=== PATIENT | female | born 1950 | race Two or more races ===

== ENCOUNTER 2016-10-30 04:19 | Emergency (ER) | payer MEDICARE, MEDICAID ==
[~2016-10-30] VITALS: Ht 165.1 cm; Wt 61.2 kg
[~2016-10-30 04:19] MED LIST: ACET-868 PO; AMIN30LI31 PO; BISA10SU8 RC; CALC500T63 PO; DOCU-25 PO; HYDR-3024 PO; HYDR-3326 PO; LACT1CAP57 PO; MAGN400O6 PO; ONDA4TAB5 PO; PANT40SU PO; [UNRECOGNIZED DRUG - CODE] PO
[2016-10-30 05:46] LABS: CALCIUM, SERUM 8.6 mg/dL (8.5-10.1); CREATININE 0.6 mg/dL (0.6-1.3); POTASSIUM 3.9 mmol/L (3.5-5.1)
[2016-10-30 05:52] LABS: ALBUMIN 3.3 g/dL (3.4-5.0); BILIRUBIN,DIRECT 0.1 mg/dL (0.0-0.2); BILIRUBIN,TOTAL 0.3 mg/dL (0.2-1.0); INDIRECT BILIRUBIN 0.2 mg/dL (0.0-1.1); SALICYLATE 0.7 mg/dL (2.8-20.0); TOTAL PROTEIN, SERUM 9.1 g/dL (6.4-8.2)
[2016-10-30 06:20] LABS: BASOPHILS % (AUTO) 0.3 % (0.0-2.0); EOSINOPHILS # (AUTO) 0.2 /CMM (0.0-0.7); HEMATOCRIT 35 % (33-45); HEMOGLOBIN 11.2 g/dL (11.5-14.8); LYMPHOCYTES # (AUTO) 1.4 /CMM (0.8-4.8); LYMPHOCYTES % (AUTO) 22.4 % (20.0-44.0); MEAN CORPUSCULAR HEMOGLOBIN 25 PG (26.0-33.0); MEAN CORPUSCULAR HGB CONC 32 g/dl (31.0-36.0); MEAN CORPUSCULAR VOLUME 77 fL (82-100); MONOCYTES # (AUTO) 0.5 /CMM (0.1-1.30); NEUTROPHILS # (AUTO) 4.2 /CMM (1.8-8.9); NEUTROPHILS % (AUTO) 66.3 % (43.0-81.0); PLATELET COUNT (AUTO) 174 /CMM (150-450); RED BLOOD CELL COUNT(AUTO) 4.47 MIL/uL (4.0-5.2); WHITE BLOOD COUNT (AUTO) 6.4 K/uL (4.3-11.0)
[2016-10-30 08:00] VITALS: BP 132/80
== END 2016-10-30 08:24 | disposition home or self-care (01) ==
LOC: ER 04:24
DX: F10.129 Alcohol abuse with intoxication, unspecified (principal); Z59.0 Homelessness; Z88.0 Allergy status to penicillin
CPT/HCPCS: 36415; 80048; 80076; 85025; 99284; A4606; G0480; G0481; G0482; G6038-TC; G6039-TC; G6040-TC; Z7610

== ENCOUNTER 2016-11-07 07:21 | Inpatient (IN) | payer MEDICAID, MEDICARE ==
[~2016-11-07] VITALS: Ht 154.9 cm; Wt 66.7 kg
[~2016-11-07 07:21] MED LIST changes: +SENN-18 PO; -[UNRECOGNIZED DRUG - CODE] PO
[2016-11-07] MEDS ORDERED: IV SET PRIMARY 1 EA INFUS.SET MC ONE (07:27)
[2016-11-07] MEDS ORDERED: IV NS 0.9% 1,000 ML ONE (07:27)
[2016-11-07 07:55] LABS: BASOPHILS % (AUTO) 0.3 % (0.0-2.0); DIFF TOTAL % 100 %; EOSINOPHILS % (AUTO) 0.4 % (0.0-6.0); HEMATOCRIT 28 % (33-45); HEMOGLOBIN 9.1 g/dL (11.5-14.8); LYMPHOCYTES # (AUTO) 0.7 /CMM (0.8-4.8); LYMPHOCYTES % (AUTO) 14.2 % (20.0-44.0); MEAN CORPUSCULAR HEMOGLOBIN 25 PG (26.0-33.0); MEAN CORPUSCULAR HGB CONC 33 g/dl (31.0-36.0); MEAN CORPUSCULAR VOLUME 76 fL (82-100); MONOCYTES # (AUTO) 0.3 /CMM (0.1-1.30); MONOCYTES % (AUTO) 5.8 % (2.0-12.0); NEUTROPHILS # (AUTO) 3.9 /CMM (1.8-8.9); NEUTROPHILS % (AUTO) 79.3 % (43.0-81.0); PLATELET COUNT (AUTO) 148 /CMM (150-450); RED BLOOD CELL COUNT(AUTO) 3.65 MIL/uL (4.0-5.2); WHITE BLOOD COUNT (AUTO) 4.9 K/uL (4.3-11.0)
[2016-11-07 08:06] LABS: ANION GAP 22 (5-14); CALCIUM, SERUM 7.8 mg/dL (8.5-10.1); CARBON DIOXIDE 19 mmol/L (21-32); CHLORIDE 98 mmol/L (98-107); CREATININE 0.9 mg/dL (0.6-1.3); GFR 63 mL/min (>60); GLUCOSE 168 mg/dL (74-106); SODIUM SERUM 136 mmol/L (136-145); UREA NITROGEN, BLOOD 5 mg/dL (7-18)
[2016-11-07 08:11] LABS: ALANINE AMINOTRANSFERASE 126 U/L (12-78); ASPARTATE AMINOTRANSFERASE 114 U/L (15-37); BILIRUBIN,DIRECT 0.2 mg/dL (0.0-0.2); BILIRUBIN,TOTAL 0.7 mg/dL (0.2-1.0); INDIRECT BILIRUBIN 0.5 mg/dL (0.0-1.1); TOTAL PROTEIN, SERUM 8.2 g/dL (6.4-8.2)
[2016-11-07] MEDS ORDERED: ONDANSETRON HCL/PF 4 MG/2 ML VIAL ONE (09:07)
[2016-11-07] MEDS ORDERED: ACETAMINOPHEN ES 500 MG TABLET ONE (09:26)
[2016-11-07] MEDS ORDERED: ACETAMINOPHEN ES 500 MG TABLET PO ONE (09:30)
[2016-11-07] MEDS ORDERED: ONDANSETRON HCL/PF 4 MG/2 ML VIAL IV ONE (09:30)
[2016-11-07] MEDS ORDERED: IV NS 0.9% 1,000 ML IV PRN (10:38)
[2016-11-07] MEDS ORDERED: Z GUARD REMEDY 2 OZ OINT TP PRN (11:00)
[2016-11-07] MEDS ORDERED: hydrOXYzine 10 MG TABLET PO PRN (11:00)
[2016-11-07] MEDS ORDERED: ACETAMINOPHEN 325 MG TABLET PO PRN ×2 (11:00)
[2016-11-07] MEDS ORDERED: BISACODYL SUPP (10 MG) 10 MG/SUPP.RECT SUPP.RECT RC PRN (11:00)
[2016-11-07] MEDS ORDERED: MAGNESIUM HYDROXIDE 30 ML UDC PO PRN (11:00)
[2016-11-07] MEDS ORDERED: MAG HYDROX/AL HYDROX/SIMETH 30 ML UDC PO PRN (11:00)
[2016-11-07] MEDS ORDERED: CALCIUM CARBONATE 500 MG TAB.CHEW PO PRN (11:00)
[2016-11-07] MEDS ORDERED: ZOLPIDEM TARTRATE 5 MG TABLET PO PRN (11:00)
[2016-11-07] MEDS ORDERED: ONDANSETRON HCL/PF 4 MG/2 ML VIAL IVP PRN (11:00)
[2016-11-07] MEDS ORDERED: LORAZEPAM INJ 2 MG/ML VIAL IV PRN (11:00)
[2016-11-07 11:59] VITALS: BP 134/72
[2016-11-07 12:00] VITALS: BP 152/66
[2016-11-07] MEDS ORDERED: POTASSIUM CHLORIDE 20 MEQ TAB.PRT.SR PO ONE (12:00)
[2016-11-07] MEDS ORDERED: SECONDARY IV SET 1 EA INFUS.SET MC ONE (12:28)
[2016-11-07] MEDS ORDERED: IV SET PRIMARY PUMP SET 1 EA INFUS.SET MC ONE (12:28)
[2016-11-07] MEDS: Thiamine 100 MG in IV D5W 50 ML IV SCH (12:44)
[2016-11-07] MEDS: HYDROCODONE/APAP 5/325MG 1 EACH TABLET PO PRN ×2 (12:44→21:01)
[2016-11-07 16:00] VITALS: BP 112/58
[2016-11-07] MEDS: LACTOBACILLUS RHAMNOSUS GG 1 EACH CAP.SPRINK PO SCH (17:44)
[2016-11-07 20:00] VITALS: BP 128/56
[2016-11-07] MEDS ORDERED: SENNOSIDES 8.6 MG TABLET PO SCH (22:00)
[2016-11-08] VITALS (7 sets, daily range): BP systolic 122–161; BP diastolic 66–92
[2016-11-08] MEDS: HYDROCODONE/APAP 5/325MG 1 EACH TABLET PO PRN ×2 (01:13→05:17)
[2016-11-08 06:45] LABS: BASOPHILS % (AUTO) 0.3 % (0.0-2.0); DIFF TOTAL % 100 %; EOSINOPHILS # (AUTO) 0.1 /CMM (0.0-0.7); EOSINOPHILS % (AUTO) 3.3 % (0.0-6.0); HEMATOCRIT 28 % (33-45); HEMOGLOBIN 9.3 g/dL (11.5-14.8); LYMPHOCYTES # (AUTO) 0.9 /CMM (0.8-4.8); LYMPHOCYTES % (AUTO) 25.1 % (20.0-44.0); MEAN CORPUSCULAR HEMOGLOBIN 25 PG (26.0-33.0); MEAN CORPUSCULAR HGB CONC 33 g/dl (31.0-36.0); MEAN CORPUSCULAR VOLUME 76 fL (82-100); MONOCYTES # (AUTO) 0.3 /CMM (0.1-1.30); MONOCYTES % (AUTO) 7.8 % (2.0-12.0); NEUTROPHILS # (AUTO) 2.2 /CMM (1.8-8.9); NEUTROPHILS % (AUTO) 63.5 % (43.0-81.0); PLATELET COUNT (AUTO) 111 /CMM (150-450); RED BLOOD CELL COUNT(AUTO) 3.72 MIL/uL (4.0-5.2); WHITE BLOOD COUNT (AUTO) 3.5 K/uL (4.3-11.0)
[2016-11-08 06:55] LABS: CALCIUM, SERUM 7.9 mg/dL (8.5-10.1); CREATININE 0.5 mg/dL (0.6-1.3); PHOSPHORUS 3.5 mg/dL (2.5-4.9); POTASSIUM 3.4 mmol/L (3.5-5.1)
[2016-11-08] MEDS ORDERED: PANTOPRAZOLE 40 MG TABLET.DR PO SCH (07:30)
[2016-11-08] MEDS: LACTOBACILLUS RHAMNOSUS GG 1 EACH CAP.SPRINK PO SCH ×2 (08:46→17:45)
[2016-11-08] MEDS ORDERED: FOLIC ACID 1 MG TABLET PO SCH (09:00)
[2016-11-08] MEDS ORDERED: MAGNESIUM HYDROXIDE 30 ML UDC PO SCH (09:00)
[2016-11-08] MEDS ORDERED: DOCUSATE SODIUM 100 MG CAPSULE PO SCH (09:00)
[2016-11-08] MEDS ORDERED: MULTIVIT, IRON, MIN NO. 8, FA 1 TAB TABLET PO SCH (09:00)
[2016-11-08] MEDS ORDERED: POTASSIUM CHLORIDE 20 MEQ TAB.PRT.SR PO ONE (10:30)
[2016-11-08] MEDS ORDERED: SECONDARY IV SET 1 EA INFUS.SET MC ONE (10:37)
[2016-11-08] MEDS: Magnesium 1GM/D5W 100ML PREMIX 100 ML IV SCH ×3 (10:40→13:25)
[2016-11-08] MEDS ORDERED: NEOMY SULF/BACITRAC ZN/POLY 15 GM TUBE TP SCH (11:30)
[2016-11-08] MEDS: Thiamine 100 MG in IV D5W 50 ML IV SCH (14:19)
== END 2016-11-08 18:41 | disposition left against medical advice (07) | DRG 101 ==
LOC: ER 07:23 → TELE1 10:53
PROVIDERS: ADMIT Internal Medicine; ATTEND Internal Medicine
DX: G40.89 Other seizures (principal); E46 Unspecified protein-calorie malnutrition; S00.03XA Contusion of scalp, initial encounter; D64.9 Anemia, unspecified; E78.5 Hyperlipidemia, unspecified; E87.6 Hypokalemia; F17.210 Nicotine dependence, cigarettes, uncomplicated; K21.9 Gastro-esophageal reflux disease without esophagitis; F10.20 Alcohol dependence, uncomplicated; R74.0 Nonspecific elevation of levels of transaminase and lactic acid dehydrogenase [LDH]; F99 Mental disorder, not otherwise specified; Z59.0 Homelessness; Z88.0 Allergy status to penicillin; Z68.27 Body mass index [BMI] 27.0-27.9, adult; X58.XXXA Exposure to other specified factors, initial encounter; Y93.9 Activity, unspecified; Y92.9 Unspecified place or not applicable; Y99.9 Unspecified external cause status
CPT/HCPCS: 36415; 70450-TC; 70486-TC; 72125-TC; 80048-TC; 80076-TC; 83735-TC; 84100-TC; 85025-TC; 87081-TC; A4606; G0480; J2405; J3411; J3475; J7030; J7060; L0172; Q0177; Z7610

== ENCOUNTER 2016-11-09 14:08 | Emergency (ER) | payer MEDICARE, MEDICAID ==
[~2016-11-09] VITALS: Ht 154.9 cm; Wt 65.8 kg
[~2016-11-09 14:08] MED LIST changes: -SENN-18 PO; +[UNRECOGNIZED DRUG - CODE] PO
[2016-11-09] MEDS ORDERED: IV LR 1000 ML 1,000 ML ONE (14:22)
[2016-11-09] MEDS ORDERED: HALOPERIDOL LACTATE INJ 5 MG/ML VIAL ONE ×2 (14:22→16:22)
[2016-11-09] MEDS ORDERED: IV SET PRIMARY PUMP SET 1 EA INFUS.SET MC ONE (14:22)
[2016-11-09] MEDS ORDERED: HALOPERIDOL LACTATE INJ 5 MG/ML VIAL IVP ONE (14:30)
[2016-11-09] MEDS ORDERED: IV LR 1000 ML 1,000 ML IV ONE (15:00)
[2016-11-09] MEDS ORDERED: HALOPERIDOL LACTATE INJ 5 MG/ML VIAL IV ONE (17:30)
[2016-11-09 18:57] VITALS: BP 120/64
== END 2016-11-09 18:58 | disposition home or self-care (01) ==
LOC: ER 14:10
DX: F10.129 Alcohol abuse with intoxication, unspecified (principal); E89.0 Postprocedural hypothyroidism; Z88.0 Allergy status to penicillin; Z59.0 Homelessness; R73.09 Other abnormal glucose
CPT/HCPCS: 70450-TC; 82962-TC; A4606; J1630; J7120; Z7610

== ENCOUNTER 2016-11-20 15:33 | Emergency (ER) | payer MEDICARE, MEDICAID ==
[~2016-11-20] VITALS: Ht 162.6 cm; Wt 54.4 kg
[~2016-11-20 15:33] MED LIST changes: +SENN-18 PO; -[UNRECOGNIZED DRUG - CODE] PO
[2016-11-20] MEDS ORDERED: ACETAMINOPHEN ES 500 MG TABLET ONE (15:45)
[2016-11-20 15:54] VITALS: BP 120/65
[2016-11-20] MEDS ORDERED: ACETAMINOPHEN ES 500 MG TABLET PO ONE (16:00)
== END 2016-11-20 16:14 | disposition left against medical advice (07) ==
LOC: ER 15:36
DX: M54.5 Low back pain (principal); F10.129 Alcohol abuse with intoxication, unspecified; W18.30XA Fall on same level, unspecified, initial encounter; Y93.89 Activity, other specified; Y92.89 Other specified places as the place of occurrence of the external cause; Y99.8 Other external cause status; Z59.0 Homelessness; Z88.0 Allergy status to penicillin; E89.0 Postprocedural hypothyroidism
CPT/HCPCS: A4606; Z7610

== ENCOUNTER 2016-11-24 20:09 | Emergency (ER) | payer MEDICARE, MEDICAID ==
[~2016-11-24] VITALS: Ht 162.6 cm; Wt 54.4 kg
[2016-11-24] MEDS ORDERED: IV NS 0.9% 1,000 ML ONE (21:00)
[2016-11-24] MEDS ORDERED: THIAMINE HCL 100 MG TABLET PO ONE (21:00)
[2016-11-24] MEDS ORDERED: IV SET PRIMARY 1 EA INFUS.SET MC ONE (21:00)
[2016-11-24] MEDS ORDERED: FOLIC ACID 1 MG TABLET PO ONE (21:00)
[2016-11-24] MEDS ORDERED: IV NS 0.9% 1,000 ML BAG IV ONE (21:00)
[2016-11-24] MEDS ORDERED: FOLIC ACID 1 MG TABLET ONE (21:00)
[2016-11-24] MEDS ORDERED: THIAMINE HCL 100 MG TABLET ONE (21:00)
[2016-11-24 21:15] LABS: BASOPHILS % (AUTO) 0.5 % (0.0-2.0); DIFF TOTAL % 100 %; EOSINOPHILS # (AUTO) 0.3 /CMM (0.0-0.7); HEMATOCRIT 33 % (33-45); HEMOGLOBIN 10.6 g/dL (11.5-14.8); LYMPHOCYTES # (AUTO) 2.2 /CMM (0.8-4.8); LYMPHOCYTES % (AUTO) 39.4 % (20.0-44.0); MEAN CORPUSCULAR HEMOGLOBIN 24 PG (26.0-33.0); MEAN CORPUSCULAR HGB CONC 32 g/dl (31.0-36.0); MEAN CORPUSCULAR VOLUME 76 fL (82-100); MONOCYTES # (AUTO) 0.4 /CMM (0.1-1.30); MONOCYTES % (AUTO) 6.3 % (2.0-12.0); NEUTROPHILS # (AUTO) 2.7 /CMM (1.8-8.9); NEUTROPHILS % (AUTO) 47.8 % (43.0-81.0); PLATELET COUNT (AUTO) 248 /CMM (150-450); WHITE BLOOD COUNT (AUTO) 5.6 K/uL (4.3-11.0)
[2016-11-24 21:18] LABS: CREATININE 0.6 mg/dL (0.6-1.3); POTASSIUM 3.6 mmol/L (3.5-5.1)
[2016-11-24 21:24] LABS: INR 1.11 (0.87-1.13)
[2016-11-24 21:32] LABS: THYROID STIMULATING HORMONE 1.501 uIU/mL (0.358-3.74)
[2016-11-24 21:33] LABS: BILIRUBIN,DIRECT 0.1 mg/dL (0.0-0.2); BILIRUBIN,TOTAL 0.3 mg/dL (0.2-1.0); INDIRECT BILIRUBIN 0.2 mg/dL (0.0-1.1); TOTAL PROTEIN, SERUM 8.8 g/dL (6.4-8.2)
[2016-11-25 06:24] VITALS: BP 121/65
== END 2016-11-25 06:26 | disposition home or self-care (01) ==
LOC: ER 20:11
DX: F10.129 Alcohol abuse with intoxication, unspecified (principal); R40.4 Transient alteration of awareness; E89.0 Postprocedural hypothyroidism; Z88.0 Allergy status to penicillin; Z59.0 Homelessness; R79.1 Abnormal coagulation profile
CPT/HCPCS: 36415; 70450-TC; 71010-TC; 80048-TC; 80076-TC; 82140-TC; 84443-TC; 85025-TC; 85730-TC; A4606; G6040-TC; J7030; Z7610

== ENCOUNTER 2016-12-05 07:19 | Emergency (ER) | payer MEDICARE, MEDICAID ==
[~2016-12-05] VITALS: Ht 152.4 cm; Wt 59.0 kg
[2016-12-05 07:25] VITALS: BP 165/74
[2016-12-05] MEDS ORDERED: predniSONE 20 MG TABLET PO ONE (07:30)
[2016-12-05] MEDS ORDERED: diphenhydrAMINE HCL 50 MG CAPSULE ONE (07:30)
[2016-12-05] MEDS ORDERED: predniSONE 20 MG TABLET ONE ×2 (07:30)
[2016-12-05] MEDS ORDERED: diphenhydrAMINE HCL 25 MG CAPSULE PO ONE (07:30)
== END 2016-12-05 08:53 | disposition home or self-care (01) ==
LOC: ER 07:21
DX: R21 Rash and other nonspecific skin eruption (principal); Z88.0 Allergy status to penicillin; Z59.0 Homelessness
CPT/HCPCS: 99283; A4606; J7512 ×2; Q0163; Z7610

== ENCOUNTER 2017-04-06 18:02 | Emergency (ER) | payer MEDICARE, MEDICAID ==
[~2017-04-06] VITALS: Ht 154.9 cm; Wt 65.8 kg
--- NOTE | 2017-04-06 18:11 | NUR ---
PT ADELSO FROM THE STREETS TO ER BED15. ETOH. SEEN IN ER MULTIPLE TIME FOR SAME REASON. NO OBVIOUS TRAUMA. STABLE VITALS. AWAITING MD RICE.
--- NOTE | 2017-04-06 18:21 | NUR ---
DR PALOMARES AT BEDSIDE FOR EVAL.
[2017-04-06] MEDS ORDERED: IV NS 0.9% 1,000 ML BAG IV ONE (18:30)
--- NOTE | 2017-04-06 18:30 | NUR ---
IV LINE STARTED BLOOD DRAWN AND SENT TO LAB.
[2017-04-06] MEDS ORDERED: IV NS 0.9% 1,000 ML ONE (18:33)
[2017-04-06] MEDS ORDERED: IV SET PRIMARY 1 EA INFUS.SET MC ONE (18:33)
[2017-04-06 18:39] LABS: BASOPHILS % (AUTO) 0.3 % (0.0-2.0); EOSINOPHILS # (AUTO) 0.1 /CMM (0.0-0.7); HEMATOCRIT 37 % (33-45); HEMOGLOBIN 12.4 g/dL (11.5-14.8); LYMPHOCYTES % (AUTO) 40.3 % (20.0-44.0); MEAN CORPUSCULAR HEMOGLOBIN 28 PG (26.0-33.0); MEAN CORPUSCULAR HGB CONC 33 g/dl (31.0-36.0); MEAN CORPUSCULAR VOLUME 84 fL (82-100); MONOCYTES # (AUTO) 0.6 /CMM (0.1-1.30); MONOCYTES % (AUTO) 8.3 % (2.0-12.0); NEUTROPHILS # (AUTO) 3.9 /CMM (1.8-8.9); NEUTROPHILS % (AUTO) 50.1 % (43.0-81.0); PLATELET COUNT (AUTO) 120 /CMM (150-450); RDW COEFFICIENT OF VARIATION 18.1 (11.5-15.0); RED BLOOD CELL COUNT(AUTO) 4.45 MIL/uL (4.0-5.2); WHITE BLOOD COUNT (AUTO) 7.6 K/uL (4.3-11.0)
[2017-04-06 18:57] LABS: ALANINE AMINOTRANSFERASE 62 U/L (12-78); ALBUMIN 3.4 g/dL (3.4-5.0); ALCOHOL, BLOOD 394 mg/dL (0-0); ALKALINE PHOSPHATASE 139 U/L (46-116); ASPARTATE AMINOTRANSFERASE 89 U/L (15-37); BILIRUBIN,DIRECT 0.3 mg/dL (0.0-0.2); BILIRUBIN,TOTAL 0.9 mg/dL (0.2-1.0); CALCIUM, SERUM 8.5 mg/dL (8.5-10.1); CARBON DIOXIDE 26 mmol/L (21-32); CHLORIDE 96 mmol/L (98-107); CREATININE 0.6 mg/dL (0.6-1.3); GLUCOSE 93 mg/dL (74-106); POTASSIUM 3.5 mmol/L (3.5-5.1); SODIUM SERUM 135 mmol/L (136-145); TOTAL PROTEIN, SERUM 9.1 g/dL (6.4-8.2); UREA NITROGEN, BLOOD 4 mg/dL (7-18)
[2017-04-06 18:58] LABS: ACETAMINOPHEN < 10 ug/ml (10-30); SALICYLATE 0.7 mg/dL (2.8-20.0)
--- NOTE | 2017-04-06 20:10 | NUR ---
sleeping in bed. easily arousable. vss. will continue to monitor.
--- NOTE | 2017-04-06 22:38 | NUR ---
sleeping. easily arousable. on monitor w/ stable vitals. will continue to monitor.
--- NOTE | 2017-04-06 23:25 | NUR ---
report to charge nurse dena for radha.
--- NOTE | 2017-04-07 01:30 | NUR ---
PT SLEEPING COMFORTABLY LEFT LATERAL ON BED. AWAKENS TO NAME. PT GIVEN WARM BLANKET AND RETURNS TO SLEEP. VSS, NAD NOTED. WILL CONT TO MONITOR.
--- NOTE | 2017-04-07 03:30 | NUR ---
PT SLEEPING COMFORTABLY SUPINE ON BED. AWAKENS TO NAME. GIVEN AN ADDITIONAL WARM BLANKET REQUESTED; PT THEN RETURNS TO SLEEP. VSS, NAD NOTED. WILL CONT TO MONITOR.
--- NOTE | 2017-04-07 05:42 | NUR ---
Patient discharged to home in stable condition. Written and verbal after care instructions given. Patient verbalizes understanding of instruction. IV removed. Catheter intact and site benign. Pressure and 4x4 applied to site. No bleeding noted. Pt ambulatory with a steady gait. Patient given written and verbal discharge instructions. Patient verbalizes understanding of instructions. Patient is ambulatory with steady gait. Refuses offer of correction placement. Patient given list of available shelters in surrounding area. VSS, NAD noted on DC. Denies complaint on DC.
[2017-04-07 05:43] VITALS: BP 121/84
== END 2017-04-07 05:51 | disposition home or self-care (01) ==
LOC: ER 18:04
DX: F10.129 Alcohol abuse with intoxication, unspecified (principal); D69.6 Thrombocytopenia, unspecified; R74.0 Nonspecific elevation of levels of transaminase and lactic acid dehydrogenase [LDH]; Z88.0 Allergy status to penicillin; Z98.890 Other specified postprocedural states
CPT/HCPCS: 80048-TC; 80076-TC; 85025-TC; A4606; G0480; J7030; Z7610

== ENCOUNTER 2017-04-19 13:51 | Emergency (ER) | payer MEDICARE, MEDICAID ==
[~2017-04-19] VITALS: Ht 154.9 cm; Wt 64.9 kg
--- NOTE | 2017-04-19 13:55 | NUR ---
PT BIBRA TO ER BED 15. PER REPORT, SLEEPING IN FRONT OF AN APARTMENT COMPLEX. ETOH. SEEN IN ER MULTIPLE TIMES FOR SAME REASON. NO OBVIOUS TRAUMA NOTED. AWAITING MD RICE.
--- NOTE | 2017-04-19 14:05 | NUR ---
REKHA COMPLAINT INVESTIGATIONS OFFICER AT BEDSIDE FOR EVAL.
--- NOTE | 2017-04-19 16:46 | NUR ---
AMBULATORY W/ STEADY GAIT. PROVIDED W/ ORAL HYDRATIO. PT WANTS TO LEAVE ED. REKHA STEAM SHOVEL ENGINEER AWARE. D/C IN STABLE CONDITION.
[2017-04-19 16:47] VITALS: BP 138/64
== END 2017-04-19 16:48 | disposition home or self-care (01) ==
LOC: ER 13:54
DX: F10.129 Alcohol abuse with intoxication, unspecified (principal); Z88.0 Allergy status to penicillin; Z59.0 Homelessness
CPT/HCPCS: 99283; A4606; Z7610

== ENCOUNTER 2017-04-21 17:34 | Emergency (ER) | payer MEDICARE, MEDICAID ==
[~2017-04-21] VITALS: Ht 165.1 cm; Wt 68.0 kg
[2017-04-21 17:37] VITALS: BP 133/75
--- NOTE | 2017-04-22 00:35 | NUR ---
ASSUMED D/C CARE OF PT AT THIS TIME. Denies any sx's at this time. Patient discharged to home in stable condition. Written and verbal after care instructions given. Patient verbalizes understanding of instruction. Ambulatory with a steady gait
== END 2017-04-22 00:37 | disposition home or self-care (01) ==
LOC: ER 17:36
DX: F10.129 Alcohol abuse with intoxication, unspecified (principal); Z88.0 Allergy status to penicillin; Z98.890 Other specified postprocedural states
CPT/HCPCS: A4606; Z7610

== ENCOUNTER 2017-04-26 13:08 | Emergency (ER) | payer MEDICARE, MEDICAID ==
[~2017-04-26] VITALS: Ht 165.1 cm; Wt 74.8 kg
--- NOTE | 2017-04-26 15:45 | NUR ---
PATIENT WAS ABLE TO AMBULATE WITHOUT ASSISTANCE, ALERT AND ORIENTED, ESCORTED OUT OF ER WITH DISCHARGE INSTRUCTIONS
[2017-04-26 15:46] VITALS: BP 123/75
== END 2017-04-26 15:47 | disposition home or self-care (01) ==
LOC: ER 13:10
DX: F10.129 Alcohol abuse with intoxication, unspecified (principal); Z88.0 Allergy status to penicillin
CPT/HCPCS: A4606; Z7610

== ENCOUNTER 2017-07-20 09:00 | Emergency (ER) | payer MEDICARE, MEDICAID ==
[~2017-07-20] VITALS: Ht 157.5 cm; Wt 65.8 kg
--- NOTE | 2017-07-20 11:05 | NUR ---
RECEIVED PATIENT IN BED, SLEEPING COMFORTABLY. NO SOB, VITALS STABLE, WILL CONTINUE TO MONITOR.
--- NOTE | 2017-07-20 16:25 | NUR ---
Patient awaken and ambulating independently. No sob. Vitals stable. Cleared for discharge per MD. Patient discharged in stable condition. Verbal after care instructions given. Patient verbalizes understanding of instruction.
[2017-07-20 16:32] VITALS: BP 108/62
== END 2017-07-20 16:33 | disposition home or self-care (01) ==
LOC: ER 09:03
DX: R41.82 Altered mental status, unspecified (principal); F10.129 Alcohol abuse with intoxication, unspecified; Z88.0 Allergy status to penicillin; Z98.890 Other specified postprocedural states
CPT/HCPCS: A4606; Z7610

== ENCOUNTER 2017-07-20 23:40 | Emergency (ER) | payer MEDICARE, MEDICAID ==
[~2017-07-20] VITALS: Ht 165.1 cm; Wt 59.9 kg
--- NOTE | 2017-07-20 23:43 | NUR ---
Pt to er bb ra from [facility] +etoh. Pt yelling and screaming upon arrival. Heavy smell of etoh on breath. Pt to er bed 16, changed into gown and connected to monitor. Dr Mittal at bedside for eval.
--- NOTE | 2017-07-21 01:30 | NUR ---
pt sleeing in [facility] no signs of distress noted. pt vital signs stable. will cont to monitor
--- NOTE | 2017-07-21 04:30 | NUR ---
Pt ok to be discharged home per dr Mittal. IV removed. Catheter intact and site benign. Pressure and 4x4 applied to site. No bleeding noted.Patient discharged to home in stable condition. Written and verbal after care instructions given. Patient verbalizes understanding of instruction.Patient is awake and alert to self, day, and place.
[2017-07-21 06:53] VITALS: BP 129/72
== END 2017-07-21 04:32 | disposition home or self-care (01) ==
LOC: ER 23:41
DX: F10.129 Alcohol abuse with intoxication, unspecified (principal); Z88.0 Allergy status to penicillin; Z98.890 Other specified postprocedural states
CPT/HCPCS: 82962-TC; A4606; J1200; Z7610

== ENCOUNTER 2017-07-24 15:07 | Emergency (ER) | payer MEDICARE, MEDICAID ==
[~2017-07-24] VITALS: Ht 152.4 cm; Wt 59.9 kg
--- NOTE | 2017-07-24 15:28 | NUR ---
ADELSO PETERSON FASTFOOD RESTAURANT S/P EATING BURGER AND DRINKING ETOH. PATIENT RECEIVED ALERT AND AWAKE- STATING "M GONNA " HOWEVER SHE DENIES PAIN. EASILY IRRITATED. VSS
[2017-07-24 16:13] VITALS: BP 125/68
--- NOTE | 2017-07-24 16:24 | NUR ---
Patient discharged to home in stable condition. Written and verbal after care instructions given. Patient verbalizes understanding of instruction.
== END 2017-07-24 16:17 | disposition home or self-care (01) ==
LOC: ER 15:09
DX: F10.129 Alcohol abuse with intoxication, unspecified (principal); Z88.0 Allergy status to penicillin
CPT/HCPCS: A4606; Z7610

== ENCOUNTER 2018-07-05 19:03 | Emergency (ER) | payer MEDICAID, MEDICARE ==
[~2018-07-05] VITALS: Ht 165.1 cm; Wt 60.8 kg
[~2018-07-05 19:03] MED LIST changes: +DOCU-141 PO; -DOCU-25 PO; -HYDR-3326 PO; +HYDR-3974 PO
[2018-07-05] MEDS ORDERED: IV NS 0.9% 1,000 ML IV PRN (19:30)
[2018-07-05] MEDS ORDERED: oxyCODONE/APAP (5/325 MG) 1 UDTAB TABLET PO ONE (19:30)
[2018-07-05] MEDS ORDERED: oxyCODONE/APAP (5/325 MG) 1 UDTAB TABLET ONE (19:31)
[2018-07-05 19:36] LABS: BASOPHILS # (AUTO) 0.1 /CMM (0.0-0.2); BASOPHILS % (AUTO) 0.5 % (0.0-2.0); EOSINOPHILS % (AUTO) 0.1 % (0.0-6.0); HEMATOCRIT 42 % (33-45); HEMOGLOBIN 13.8 g/dL (11.5-14.8); LYMPHOCYTES % (AUTO) 10.1 % (20.0-44.0); MEAN CORPUSCULAR HEMOGLOBIN 28 PG (26.0-33.0); MEAN CORPUSCULAR HGB CONC 33 g/dl (31.0-36.0); MEAN CORPUSCULAR VOLUME 85 fL (82-100); MONOCYTES # (AUTO) 0.8 /CMM (0.1-1.30); MONOCYTES % (AUTO) 7.9 % (2.0-12.0); NEUTROPHILS # (AUTO) 8.4 /CMM (1.8-8.9); NEUTROPHILS % (AUTO) 81.4 % (43.0-81.0); PLATELET COUNT (AUTO) 146 /CMM (150-450); RDW COEFFICIENT OF VARIATION 13.5 (11.5-15.0); RED BLOOD CELL COUNT(AUTO) 4.88 MIL/uL (4.0-5.2); WHITE BLOOD COUNT (AUTO) 10.3 K/uL (4.3-11.0)
--- NOTE | 2018-07-05 19:37 | NUR ---
ADELSO [address] FOR ALTERED MENTAL STATUS AND HYPOTENSION W/ IN FIELD BP 78/45, FIELD BS 81, PER EMS GIVEN 200CC NS. PER EMS, PT WAS ALLOWED OUT OF THE FACILITY FOR A COUPLE OF HOURS. PT DENIES TRAUMA. PT ADMITTS TO DRINKING ALCOHOL COUPLE HRS AGO. PT AAOX2-3. PT STATES SHE BELIEVES ITS THE YEAR OF 1700'S. PT'S SKIN WARM AND DRY. PT'S ORAL MUCOSA MOIST, PT STATES "I FEEL THIRSTY. PT PLACED ON PRINCIPAL SCIENTIST AND POX. PT SAFETY AND COMFORT MEASURES IN PLACE. NO S/S OF ACUTE DSITRESS NOTED. RESP EVEN AND UNLABORED. BEDSIDE FOR EVAL.
--- NOTE | 2018-07-05 19:40 | NUR ---
PT C/O OF BILATERAL LOWER EXTREMITY PAIN AND CRAMPING X 1 DAY. AWARE
--- NOTE | 2018-07-05 19:43 | NUR ---
PT'S CAREGIVER ARRIVED TO ED. TEODORA STATES THIS IS THE PT'S NORMAL MENTATION.
--- NOTE | 2018-07-05 19:44 | NUR ---
TEODORA: [phone]
[2018-07-05 19:49] LABS: CALCIUM, SERUM 9.4 mg/dL (8.5-10.1); CREATININE 1.3 mg/dL (0.6-1.3); POTASSIUM 3.6 mmol/L (3.5-5.1)
[2018-07-05 19:54] LABS: TROPONIN I 0.175 ng/mL (0.00-0.056)
[2018-07-05 20:02] LABS: ALBUMIN 3.8 g/dL (3.4-5.0); BILIRUBIN,DIRECT 0.4 mg/dL (0.0-0.2); BILIRUBIN,TOTAL 1.7 mg/dL (0.2-1.0); TOTAL PROTEIN, SERUM 8.7 g/dL (6.4-8.2)
[2018-07-05 21:15] LABS: APPEARANCE,URINE Slightly Cloudy (CLEAR); BILIRUBIN,URINE SMALL (NEGATIVE); BLOOD, URINE Negative Ery/uL (NEGATIVE); KETONES,URINE 40 (NEGATIVE); LEUKOCYTE ESTERASE ,URINE Moderate (NEGATIVE); NITRITE, URINE Negative (NEGATIVE); PROTEIN,URINE 30 mg/dl (NEGATIVE); UGLUCOSE Negative (NEGATIVE)
--- NOTE | 2018-07-05 21:19 | NUR ---
CALLED THE CAREGIVER TEODORA, SHE WILL BE PICKING UP THE PT IN 1 HR
[2018-07-05 21:24] LABS: BACTERIA,URINE Many /HPF (None Seen)
[2018-07-05 21:25] LABS: RBC,URINE 0-2 /HPF (0-2); SQUAMOUS EPITHELIAL CELL,UR Many /HPF (None Seen)
[2018-07-05 21:26] LABS: COLOR,URINE DARK YELLOW (YELLOW); HYALINE CASTS, URINE Moderate /LPF (None Seen)
[2018-07-05 21:51] LABS: BAND % (MANUAL) 2 % (0.0-5.0); LYMPHOCYTES % (MANUAL) 14 % (16-48); MONOCYTES % (MANUAL) 8 % (0-11.0); NEUTROPHILS % (MANUAL) 76 (42-76)
[2018-07-05] MEDS ORDERED: NITROFURANTOIN/NITROFURAN MAC 100 MG CAPSULE ONE (21:52)
--- NOTE | 2018-07-05 21:54 | NUR ---
Patient discharged to home in stable condition. Written and verbal after care instructions given. Patient verbalizes understanding of instruction.IV removed. Catheter intact and site benign. Pressure and 4x4 applied to site. No bleeding noted. PT WHHELCAHIRED OUT BY THE OF TEODORA (CAREGIVER).
[2018-07-05 21:56] VITALS: BP 112/77
[2018-07-05] MEDS ORDERED: NITROFURANTOIN/NITROFURAN MAC 100 MG CAPSULE PO ONE (22:00)
== END 2018-07-05 21:57 | disposition home or self-care (01) ==
LOC: ER 19:04
DX: E86.0 Dehydration (principal); M79.605 Pain in left leg; M79.604 Pain in right leg; N39.0 Urinary tract infection, site not specified; F10.129 Alcohol abuse with intoxication, unspecified; Z90.89 Acquired absence of other organs; Z88.0 Allergy status to penicillin; Z59.0 Homelessness; Z79.899 Other long term (current) drug therapy
CPT/HCPCS: 36415; 80048; 80076; 81001; 82550; 83690; 83880; 84484; 85025; 87086; 93005; 96360; 99285; A4606; J7030; 81000-TC; Z7610

== ENCOUNTER 2023-08-12 10:28 | Inpatient (IN) | payer MEDICARE, OTHER ==
[~2023-08-12] VITALS: Ht 170.2 cm; Wt 54.4 kg
[~2023-08-12 10:28] MED LIST changes: +BISA10SU11 RC; -BISA10SU8 RC; -HYDR-3024 PO; +HYDR-3642 PO
[2023-08-12 11:29] LABS: BASOPHILS % (AUTO) 0.5 % (0.0-2.0); EOSINOPHILS # (AUTO) 0.2 K/uL (0.0-0.7); EOSINOPHILS % (AUTO) 2.8 % (0.0-6.0); HEMATOCRIT 39 % (33-45); HEMOGLOBIN 12.7 g/dL (11.5-14.8); LYMPHOCYTES # (AUTO) 1.1 K/uL (0.8-4.8); LYMPHOCYTES % (AUTO) 14.7 % (20.0-44.0); MEAN CORPUSCULAR HEMOGLOBIN 26 PG (26.0-33.0); MEAN CORPUSCULAR HGB CONC 32 g/dl (31.0-36.0); MEAN CORPUSCULAR VOLUME 80 fL (82-100); MONOCYTES # (AUTO) 0.7 K/uL (0.1-1.30); MONOCYTES % (AUTO) 9.7 % (2.0-12.0); NEUTROPHILS # (AUTO) 5.2 K/uL (1.8-8.9); NEUTROPHILS % (AUTO) 72.3 % (43.0-81.0); PLATELET COUNT (AUTO) 179 K/uL (150-450); RED CELL DISTRIBUTION WIDTH 14.8 % (11.5-15.0); WHITE BLOOD COUNT (AUTO) 7.2 K/uL (4.3-11.0)
[2023-08-12 11:43] LABS: INR 1.1 (0.91-1.10); PROTHROMBIN TIME 11.6 SECS (9.2-11.1)
[2023-08-12] MEDS ORDERED: MAGN400O6 PO (11:54)
[2023-08-12] MEDS ORDERED: ACET-868 PO (11:54)
[2023-08-12] MEDS ORDERED: CARB-273 EACHEYE (11:54)
[2023-08-12] MEDS ORDERED: MAG30ORA PO (11:54)
[2023-08-12] MEDS ORDERED: ASPI-1169 PO (11:54)
[2023-08-12] MEDS ORDERED: MULT-213 PO (11:54)
[2023-08-12] MEDS ORDERED: AMIN30LI2 PO (11:54)
[2023-08-12] MEDS ORDERED: BROM1.7D9 EACHEYE (11:54)
[2023-08-12] MEDS ORDERED: CLOB15CR4 TP (11:54)
[2023-08-12] MEDS ORDERED: CRAN3875 PO (11:54)
[2023-08-12] MEDS ORDERED: ATEN50TA PO (11:54)
[2023-08-12] MEDS ORDERED: FOLI0.8T3 PO (11:54)
[2023-08-12] MEDS ORDERED: DOCU100T2 PO (11:54)
[2023-08-12] MEDS ORDERED: BISA10SU11 RC (11:54)
[2023-08-12] MEDS ORDERED: NA P133E RC (11:54)
[2023-08-12] MEDS ORDERED: HYDR-4303 PO (11:54)
[2023-08-12 11:55] LABS: CALCIUM, SERUM 9.3 mg/dL (8.5-10.1); CARBON DIOXIDE 26 mmol/L (21-32); CHLORIDE 105 mmol/L (98-107); CREATININE 0.7 mg/dL (0.6-1.3); GLUCOSE 87 mg/dL (74-106); POTASSIUM 4.4 mmol/L (3.5-5.1); SODIUM SERUM 139 mmol/L (136-145); UREA NITROGEN, BLOOD 15 mg/dL (7-18)
[2023-08-12] MEDS ORDERED: ONDANSETRON HCL/PF 4 MG/2 ML VIAL IVP PRN (13:30)
[2023-08-12 13:52] VITALS: BP 111/70; TEMP 97.9; O2SAT 98
[2023-08-12 16:00] VITALS: BP 106/61; TEMP 97.9; O2SAT 97
[2023-08-12 20:00] VITALS: BP 121/62; TEMP 98.1; O2SAT 95
[2023-08-12] MEDS: ACETAMINOPHEN 325 MG TABLET PO PRN (20:43)
[2023-08-12] MEDS: ZOLPIDEM TARTRATE 5 MG TABLET PO PRN (21:54)
[2023-08-13 04:00] VITALS: BP 104/44; TEMP 97.7; O2SAT 98
[2023-08-13 08:00] VITALS: BP 133/76; TEMP 97.7; O2SAT 94
[2023-08-13 10:48] LABS: APPEARANCE,URINE SLIGHTLY CLOUDY (CLEAR); BILIRUBIN,URINE 1+ (NEGATIVE); BLOOD, URINE NEGATIVE Ery/uL (NEGATIVE); COLOR,URINE DARK YELLOW (YELLOW); KETONES,URINE NEGATIVE (NEGATIVE); LEUKOCYTE ESTERASE ,URINE 3+ (NEGATIVE); NITRITE, URINE POSITIVE (NEGATIVE); PROTEIN,URINE NEGATIVE (NEGATIVE); UGLUCOSE NEGATIVE (NEGATIVE)
[2023-08-13 11:15] LABS: ADD URINE CULTURE YES; BACTERIA,URINE Many /HPF (None Seen); RBC,URINE 0-2 /HPF (0-2); SQUAMOUS EPITHELIAL CELL,UR Moderate /HPF (None Seen)
[2023-08-13 11:16] LABS: TRIPLE PHOSPHATE CRYSTAL,UR Moderate /HPF (None Seen); URINE AMORPHOUS PHOSPHATES Moderate /HPF (None Seen)
[2023-08-13 11:27] LABS: ALANINE AMINOTRANSFERASE 35 U/L (12-78); ALBUMIN 2.9 g/dL (3.4-5.0); ALKALINE PHOSPHATASE 90 U/L (46-116); ASPARTATE AMINOTRANSFERASE 33 U/L (15-37); BILIRUBIN,TOTAL 0.9 mg/dL (0.2-1.0); CALCIUM, SERUM 8.8 mg/dL (8.5-10.1); CARBON DIOXIDE 24 mmol/L (21-32); CHLORIDE 106 mmol/L (98-107); CREATININE 0.7 mg/dL (0.6-1.3); GLUCOSE 86 mg/dL (74-106); POTASSIUM 4.1 mmol/L (3.5-5.1); SODIUM SERUM 139 mmol/L (136-145); TOTAL PROTEIN, SERUM 7.9 g/dL (6.4-8.2); UREA NITROGEN, BLOOD 15 mg/dL (7-18)
[2023-08-13 11:38] LABS: THYROID STIMULATING HORMONE 2.854 uIU/mL (0.358-3.74)
[2023-08-13 16:00] VITALS: BP 119/61; TEMP 97.8; O2SAT 98
[2023-08-13 20:00] VITALS: BP 119/62; TEMP 98.4; O2SAT 96
[2023-08-13] MEDS: ZOLPIDEM TARTRATE 5 MG TABLET PO PRN (21:03)
[2023-08-14 04:00] VITALS: BP 102/51; TEMP 98.4; O2SAT 94
[2023-08-14 08:00] VITALS: BP 108/57; TEMP 98.6; O2SAT 95
[2023-08-14] MEDS ORDERED: BUPIVACAINE 0.5 % PF 150 MG/30 ML VIAL ONE (10:19)
[2023-08-14] MEDS ORDERED: LIDOCAINE 1%-EPI 1:100,000 20 ML VIAL ONE (10:19)
[2023-08-14] MEDS ORDERED: BUPIVACAINE 0.25% 75 MG/30 ML VIAL ONE (10:25)
[2023-08-14] MEDS ORDERED: CEFTRIAXONE 1 G in IV D5W 50 ML IV SCH (10:30)
[2023-08-14] MEDS ORDERED: FENTANYL PF 100MCG/2ML AMPUL ONE (12:51)
[2023-08-14] MEDS ORDERED: CLINDAMYCIN 900 MG/6 ML VIAL ONE (12:52)
[2023-08-14] MEDS ORDERED: MIDAZOLAM HCL 2 MG/2ML VIAL ONE (12:52)
[2023-08-14] MEDS: CIPROFLOXACIN IV RTU 400 MG in PREMIX 1 EA IV SCH ×2 (14:40→21:04)
[2023-08-14] MEDS: ACETAMINOPHEN 325 MG TABLET PO PRN (15:40)
[2023-08-14 16:00] VITALS: BP 128/66; TEMP 97.4; O2SAT 95
[2023-08-14 20:00] VITALS: BP 117/63; TEMP 97.2; O2SAT 94
[2023-08-14] MEDS: ZOLPIDEM TARTRATE 5 MG TABLET PO PRN (21:03)
[2023-08-15] MEDS: ACETAMINOPHEN 325 MG TABLET PO PRN (03:15)
[2023-08-15 05:00] VITALS: BP 113/65; TEMP 98.6; O2SAT 97
[2023-08-15 06:55] LABS: BASOPHILS % (AUTO) 0.4 % (0.0-2.0); EOSINOPHILS # (AUTO) 0.1 K/uL (0.0-0.7); EOSINOPHILS % (AUTO) 2.3 % (0.0-6.0); HEMATOCRIT 37 % (33-45); LYMPHOCYTES # (AUTO) 0.8 K/uL (0.8-4.8); LYMPHOCYTES % (AUTO) 17.8 % (20.0-44.0); MEAN CORPUSCULAR HEMOGLOBIN 26 PG (26.0-33.0); MEAN CORPUSCULAR HGB CONC 33 g/dl (31.0-36.0); MEAN CORPUSCULAR VOLUME 79 fL (82-100); MONOCYTES # (AUTO) 0.4 K/uL (0.1-1.30); MONOCYTES % (AUTO) 8.8 % (2.0-12.0); NEUTROPHILS # (AUTO) 3.1 K/uL (1.8-8.9); NEUTROPHILS % (AUTO) 70.7 % (43.0-81.0); PLATELET COUNT (AUTO) 134 K/uL (150-450); RED BLOOD CELL COUNT(AUTO) 4.67 MIL/uL (4.0-5.2); RED CELL DISTRIBUTION WIDTH 14.6 % (11.5-15.0); WHITE BLOOD COUNT (AUTO) 4.4 K/uL (4.3-11.0)
[2023-08-15 07:16] LABS: CALCIUM, SERUM 8.1 mg/dL (8.5-10.1); CARBON DIOXIDE 24 mmol/L (21-32); CHLORIDE 104 mmol/L (98-107); CREATININE 0.8 mg/dL (0.6-1.3); GLUCOSE 77 mg/dL (74-106); MAGNESIUM 1.9 mg/dL (1.8-2.4); PHOSPHORUS 3.6 mg/dL (2.5-4.9); POTASSIUM 3.9 mmol/L (3.5-5.1); SODIUM SERUM 136 mmol/L (136-145); UREA NITROGEN, BLOOD 16 mg/dL (7-18)
[2023-08-15 08:00] VITALS: BP 97/53; TEMP 97.7; O2SAT 98
[2023-08-15] MEDS: CIPROFLOXACIN IV RTU 400 MG in PREMIX 1 EA IV SCH (09:13)
[2023-08-15] MEDS ORDERED: CIPR-262 PO (10:14)
[2023-08-15 13:00] VITALS: BP 128/80; TEMP 97.7; O2SAT 98
== END 2023-08-15 16:35 | DRG 576 ==
LOC: ER 10:30 → MEDSG1 13:33
PROVIDERS: ADMIT Nurse Practitioner Acute Care; ATTEND Nurse Practitioner Acute Care
PROC: 0HX0XZZ Transfer Scalp Skin, External Approach (ICD-10-PCS; principal; 2023-08-14)
PROC: 0HB0XZZ Excision of Scalp Skin, External Approach (ICD-10-PCS; 2023-08-14)
DX: C44.329 Squamous cell carcinoma of skin of other parts of face (principal); G93.41 Metabolic encephalopathy; N39.0 Urinary tract infection, site not specified; Z86.73 Personal history of transient ischemic attack (TIA), and cerebral infarction without residual deficits; Z85.828 Personal history of other malignant neoplasm of skin; Z20.822 Contact with and (suspected) exposure to COVID-19; E89.0 Postprocedural hypothyroidism; Z88.0 Allergy status to penicillin; B96.89 Other specified bacterial agents as the cause of diseases classified elsewhere; F10.21 Alcohol dependence, in remission
CPT/HCPCS: 36415; 71045-TC; 76700-TC; 80048-TC; 80053-TC; 81001; 83735-TC; 84100-TC; 84439-TC; 84443-TC; 85025-TC; 85730-TC; 86850-TC; 87081-TC; 87086-TC; 93307-TC; A4216; A4223; A6402; G0378; G0480; J0744; J2250; J2704; J3010; J3490; J7030

== ENCOUNTER 2024-04-24 12:35 | Inpatient (IN) | payer MEDICARE, OTHER ==
[~2024-04-24] VITALS: Ht 165.1 cm; Wt 49.2 kg
[~2024-04-24 12:35] MED LIST changes: +AMIN30LI2 PO; -AMIN30LI31 PO; +ASPI-1169 PO; +ATEN50TA PO; +BROM1.7D9 EACHEYE; -CALC500T63 PO; +CARB-273 EACHEYE; +CIPR-262 PO; +CLOB15CR4 TP; +CRAN3875 PO; -DOCU-141 PO; +DOCU100T2 PO; +FOLI0.8T3 PO; -HYDR-3642 PO; -HYDR-3974 PO; +HYDR-4303 PO; -LACT1CAP57 PO; +MAG30ORA PO; +MULT-213 PO; +NA P133E RC; -ONDA4TAB5 PO; -PANT40SU PO; -SENN-18 PO
[2024-04-24 13:44] LABS: BASOPHILS % (AUTO) 0.2 % (0.0-2.0); CALCIUM, SERUM 9.3 mg/dL (8.5-10.1); CARBON DIOXIDE 25 mmol/L (21-32); CHLORIDE 104 mmol/L (98-107); CREATININE 0.8 mg/dL (0.6-1.3); EOSINOPHILS % (AUTO) 0.5 % (0.0-6.0); GLUCOSE 120 mg/dL (74-106); HEMATOCRIT 36 % (33-45); HEMOGLOBIN 12.2 g/dL (11.5-14.8); LYMPHOCYTES # (AUTO) 0.5 K/uL (0.8-4.8); LYMPHOCYTES % (AUTO) 11.8 % (20.0-44.0); MEAN CORPUSCULAR HEMOGLOBIN 28 PG (26.0-33.0); MEAN CORPUSCULAR HGB CONC 34 g/dl (31.0-36.0); MEAN CORPUSCULAR VOLUME 83 fL (82-100); MONOCYTES # (AUTO) 0.2 K/uL (0.1-1.30); MONOCYTES % (AUTO) 5.6 % (2.0-12.0); NEUTROPHILS # (AUTO) 3.2 K/uL (1.8-8.9); NEUTROPHILS % (AUTO) 81.9 % (43.0-81.0); PLATELET COUNT (AUTO) 76 K/uL (150-450); POTASSIUM 4.1 mmol/L (3.5-5.1); RED BLOOD CELL COUNT(AUTO) 4.33 MIL/uL (4.0-5.2); RED CELL DISTRIBUTION WIDTH 14.5 % (11.5-15.0); SODIUM SERUM 139 mmol/L (136-145); UREA NITROGEN, BLOOD 9 mg/dL (7-18)
[2024-04-24 13:45] LABS: SERUM AMMONIA 12 umol/L (11-32)
[2024-04-24 13:48] LABS: INR 1.13 (0.91-1.10); PARTIAL THROMBOPLASTIN TIME 29.7 SEC (24.3-34.3); PROTHROMBIN TIME 11.9 SECS (9.2-11.1)
[2024-04-24 13:49] LABS: ALANINE AMINOTRANSFERASE 45 U/L (12-78); ALCOHOL, BLOOD < 3 mg/dL (0-10); ALKALINE PHOSPHATASE 81 U/L (46-116); ASPARTATE AMINOTRANSFERASE 34 U/L (15-37); BILIRUBIN,DIRECT 0.2 mg/dL (0.0-0.2); BILIRUBIN,TOTAL 0.7 mg/dL (0.2-1.0); TOTAL PROTEIN, SERUM 7.9 g/dL (6.4-8.2)
[2024-04-24] MEDS ORDERED: HALOPERIDOL LACTATE INJ 5 MG/ML VIAL ONE (13:59)
[2024-04-24] MEDS: HALOPERIDOL LACTATE INJ 5 MG/ML VIAL IM ONE (14:12)
[2024-04-24 14:20] LABS: LYMPHOCYTES % (MANUAL) 11 % (16-48); NEUTROPHILS % (MANUAL) 83 (42-76)
[2024-04-24 14:21] LABS: ANISOCYTOSIS 1+; BASOPHILS % (MANUAL) 0 % (0.0-2.0); EOSINOPHILS % (MANUAL) 0 % (0-4); MONOCYTES % (MANUAL) 6 % (0-11.0); PLATELET ESTIMATE DECREASED
[2024-04-24] MEDS ORDERED: CRAN250C PO (14:29)
[2024-04-24] MEDS ORDERED: FURO-145 PO (14:29)
[2024-04-24] MEDS ORDERED: PHEN26CR2 RC (14:29)
[2024-04-24] MEDS ORDERED: CYCL30DR EACHEYE (14:29)
[2024-04-24] MEDS ORDERED: TEMA7.5C PO (14:29)
[2024-04-24] MEDS ORDERED: MAG HYDROX/AL HYDROX/SIMETH 30 ML UDC PO PRN (14:30)
[2024-04-24] MEDS ORDERED: ONDANSETRON HCL/PF 4 MG/2 ML VIAL IVP PRN (14:30)
[2024-04-24] MEDS ORDERED: MAGNESIUM HYDROXIDE 30 ML UDC PO PRN (14:30)
[2024-04-24] MEDS ORDERED: Z GUARD REMEDY 4 OZ OINT TP PRN (14:30)
[2024-04-24] MEDS ORDERED: LORAZEPAM INJ 2 MG/ML VIAL IV PRN (14:30)
[2024-04-24] MEDS ORDERED: LORAZEPAM 0.5 MG TABLET PO PRN (15:30)
[2024-04-24] MEDS ORDERED: HALOPERIDOL LACTATE INJ 5 MG/ML VIAL IM PRN (15:30)
[2024-04-24 16:18] LABS: APPEARANCE,URINE SLIGHTLY CLOUDY (CLEAR); BILIRUBIN,URINE NEGATIVE (NEGATIVE); BLOOD, URINE 1+ Ery/uL (NEGATIVE); COLOR,URINE YELLOW (YELLOW); KETONES,URINE NEGATIVE (NEGATIVE); LEUKOCYTE ESTERASE ,URINE 3+ (NEGATIVE); NITRITE, URINE POSITIVE (NEGATIVE); PROTEIN,URINE NEGATIVE (NEGATIVE); UGLUCOSE NEGATIVE (NEGATIVE); UROBILINOGEN,URINE 0.2 EU/dL (0.2)
[2024-04-24 16:28] LABS: AMPHETAMINE, URINE NEGATIVE (NEGATIVE); BARBITURATE, URINE NEGATIVE (NEGATIVE); BENZODIAZEPINE, URINE NEGATIVE (NEGATIVE); CANNABINOID, URINE NEGATIVE (NEGATIVE); COCCAINE, URINE NEGATIVE (NEGATIVE); OPIATE, URINE POSITIVE (NEGATIVE); PHENCYCLIDINE SCREEN,URINE NEGATIVE (NEGATIVE)
[2024-04-24 16:34] LABS: ADD URINE CULTURE YES; BACTERIA,URINE Many /HPF (None Seen); TRICHOMONAS,URINE None Seen /HPF (None Seen); YEAST,URINE None Seen /HPF (None Seen)
[2024-04-24 16:36] LABS: FINE GRANULAR CASTS,URINE Few /LPF (None Seen); RED BLOOD CELL CASTS,URINE Few /LPF (None Seen); URINE AMORPHOUS URATE Few /HPF (None Seen)
[2024-04-24] MEDS: IV NS 0.9% 1,000 ML IV PRN (17:45)
[2024-04-24 18:00] VITALS: BP 111/64; TEMP 97.9; O2SAT 98
[2024-04-24 20:00] VITALS: BP 123/59; TEMP 97.2; O2SAT 96
[2024-04-25] VITALS (7 sets, daily range): BP systolic 124–146; BP diastolic 60–71; TEMP 97.5–98.9; O2SAT 94–97
[2024-04-25 06:50] LABS: BASOPHILS % (AUTO) 0.4 % (0.0-2.0); EOSINOPHILS % (AUTO) 1.2 % (0.0-6.0); HEMATOCRIT 33 % (33-45); HEMOGLOBIN 11.5 g/dL (11.5-14.8); LYMPHOCYTES # (AUTO) 0.7 K/uL (0.8-4.8); LYMPHOCYTES % (AUTO) 22.4 % (20.0-44.0); MEAN CORPUSCULAR HEMOGLOBIN 28 PG (26.0-33.0); MEAN CORPUSCULAR HGB CONC 35 g/dl (31.0-36.0); MEAN CORPUSCULAR VOLUME 83 fL (82-100); MONOCYTES # (AUTO) 0.2 K/uL (0.1-1.30); MONOCYTES % (AUTO) 7.2 % (2.0-12.0); NEUTROPHILS # (AUTO) 2.1 K/uL (1.8-8.9); NEUTROPHILS % (AUTO) 68.8 % (43.0-81.0); PLATELET COUNT (AUTO) 72 K/uL (150-450); RED BLOOD CELL COUNT(AUTO) 4.03 MIL/uL (4.0-5.2); RED CELL DISTRIBUTION WIDTH 14.3 % (11.5-15.0)
[2024-04-25] MEDS: LEVOFLOXACIN 500 MG /D5W 100ML 500 MG in PREMIX 1 EA IV ONE (07:09)
[2024-04-25 07:10] LABS: CALCIUM, SERUM 8.6 mg/dL (8.5-10.1); CREATININE 0.6 mg/dL (0.6-1.3); PHOSPHORUS 2.9 mg/dL (2.5-4.9); POTASSIUM 3.7 mmol/L (3.5-5.1)
[2024-04-25 10:27] LABS: LYMPHOCYTES % (MANUAL) 20 % (16-48); MONOCYTES % (MANUAL) 4 % (0-11.0); NEUTROPHILS % (MANUAL) 76 (42-76)
[2024-04-25 10:28] LABS: ANISOCYTOSIS 1+; PLATELET ESTIMATE DECREASED
[2024-04-25] MEDS ORDERED: TEMAZEPAM 7.5 MG CAPSULE PO PRN (12:00)
[2024-04-25] MEDS ORDERED: MAGNESIUM HYDROXIDE 30 ML UDC PO PRN (12:00)
[2024-04-25] MEDS ORDERED: MAG HYDROX/AL HYDROX/SIMETH 30 ML UDC PO PRN (12:00)
[2024-04-25] MEDS ORDERED: BISACODYL SUPP (10 MG) 10 MG/SUPP.RECT SUPP.RECT RC PRN (12:00)
[2024-04-25] MEDS ORDERED: NA PHOS,M-B/NA PHOS,DI-BA 1 EA ENEMA RC PRN (12:00)
[2024-04-25] MEDS: ACETAMINOPHEN 325 MG TABLET PO PRN (13:39)
[2024-04-25] MEDS: ATENOLOL 50 MG TABLET PO SCH (16:25)
[2024-04-26] VITALS: BP 121/48; TEMP 98; O2SAT 96
[2024-04-26 05:00] VITALS: BP 110/55; TEMP 97.8; O2SAT 97
[2024-04-26] MEDS: LEVOFLOXACIN 250 MG /D5W 50 ML 250 MG in PREMIX 1 EA IV SCH (06:07)
[2024-04-26 07:24] LABS: CALCIUM, SERUM 8.7 mg/dL (8.5-10.1); CREATININE 0.7 mg/dL (0.6-1.3); POTASSIUM 3.8 mmol/L (3.5-5.1)
[2024-04-26 07:42] LABS: BASOPHILS % (AUTO) 0.4 % (0.0-2.0); EOSINOPHILS % (AUTO) 0.5 % (0.0-6.0); HEMATOCRIT 36 % (33-45); HEMOGLOBIN 12.1 g/dL (11.5-14.8); LYMPHOCYTES # (AUTO) 0.7 K/uL (0.8-4.8); LYMPHOCYTES % (AUTO) 17.6 % (20.0-44.0); MEAN CORPUSCULAR HEMOGLOBIN 28 PG (26.0-33.0); MEAN CORPUSCULAR HGB CONC 34 g/dl (31.0-36.0); MEAN CORPUSCULAR VOLUME 83 fL (82-100); MONOCYTES # (AUTO) 0.3 K/uL (0.1-1.30); MONOCYTES % (AUTO) 7.5 % (2.0-12.0); NEUTROPHILS # (AUTO) 2.8 K/uL (1.8-8.9); PLATELET COUNT (AUTO) 84 K/uL (150-450); RED BLOOD CELL COUNT(AUTO) 4.33 MIL/uL (4.0-5.2); RED CELL DISTRIBUTION WIDTH 14.3 % (11.5-15.0); WHITE BLOOD COUNT (AUTO) 3.8 K/uL (4.3-11.0)
[2024-04-26 08:24] VITALS: BP 114/53; TEMP 98.2; O2SAT 100
[2024-04-26] MEDS: FOLIC ACID 1 MG TABLET PO SCH (08:32)
[2024-04-26] MEDS: ASPIRIN 81 MG TAB.CHEW PO SCH (08:32)
[2024-04-26] MEDS: DOCUSATE SODIUM 100 MG CAPSULE PO SCH (08:32)
[2024-04-26] MEDS: FUROSEMIDE 20 MG TABLET PO SCH (08:32)
[2024-04-26] MEDS: MUPIROCIN OINT 2% 22 GM TUBE NS SCH (08:41)
[2024-04-26] MEDS ORDERED: LEVO500T90 PO (09:54)
[2024-04-26 12:00] VITALS: BP 132/59; TEMP 97.5; O2SAT 97
[2024-04-26 13:39] LABS: ANISOCYTOSIS 1+; BASOPHILS % (MANUAL) 0 % (0.0-2.0); EOSINOPHILS % (MANUAL) 0 % (0-4); LYMPHOCYTES % (MANUAL) 15 % (16-48); MONOCYTES % (MANUAL) 9 % (0-11.0); NEUTROPHILS % (MANUAL) 76 (42-76); PLATELET ESTIMATE DECREASED
[2024-04-26 16:00] VITALS: BP 147/64; TEMP 97.7; O2SAT 97
[2024-04-26 20:16] VITALS: BP 133/61; TEMP 97.5; O2SAT 97
[2024-04-26] MEDS: DIVALPROEX SODIUM 125 MG CAP.SPRINK PO SCH (20:53)
[2024-04-27 00:20] VITALS: BP 146/71; TEMP 97.5; O2SAT 97
[2024-04-27 04:00] VITALS: BP 148/63; TEMP 98; O2SAT 96
[2024-04-27 08:00] VITALS: BP 131/61; TEMP 99.5; O2SAT 96
[2024-04-27] MEDS: MULTIPLE VIT (LYCOPENE/FA/MV,CA,IRON,MIN/LUT)1 TAB PO SCH (09:21)
[2024-04-27 12:00] VITALS: BP 127/66; TEMP 97.3; O2SAT 95
[2024-04-27] MEDS ORDERED: ENSURE ENLIVE CHOC 237 ML CAN PO SCH (17:00)
== END 2024-04-27 13:55 | DRG 640 ==
LOC: ER 12:40 → TELE 14:46
PROVIDERS: ADMIT Internal Medicine; ATTEND Internal Medicine
DX: E86.0 Dehydration (principal); G93.41 Metabolic encephalopathy; N39.0 Urinary tract infection, site not specified; F03.93 Unspecified dementia, unspecified severity, with mood disturbance; F03.94 Unspecified dementia, unspecified severity, with anxiety; Z86.73 Personal history of transient ischemic attack (TIA), and cerebral infarction without residual deficits; F20.9 Schizophrenia, unspecified; I10 Essential (primary) hypertension; Z66 Do not resuscitate; Z51.5 Encounter for palliative care; E89.0 Postprocedural hypothyroidism; D64.9 Anemia, unspecified; F41.9 Anxiety disorder, unspecified; Z79.899 Other long term (current) drug therapy; Z88.0 Allergy status to penicillin; F10.20 Alcohol dependence, uncomplicated; Y90.0 Blood alcohol level of less than 20 mg/100 ml; Z79.82 Long term (current) use of aspirin; Z85.038 Personal history of other malignant neoplasm of large intestine; B96.89 Other specified bacterial agents as the cause of diseases classified elsewhere; F39 Unspecified mood [affective] disorder; F29 Unspecified psychosis not due to a substance or known physiological condition
CPT/HCPCS: 36415; 70450-TC; 71045-TC; 80048-TC; 80076-TC; 81001; 82140-TC; 83735-TC; 84100-TC; 84443-TC; 84484-TC; 85025-TC; 85730-TC; 87081-TC; 97110-TC; 97116-TC; 97530-TC; A4216; A4223; G0378; G0480; J1630; J1956; J7030